=== PATIENT | male | born 1960 | race Two or more races ===

== ENCOUNTER → 2022-01-26 | Day surgery (SDC) | payer OTHER ==
[~2022-01-26] VITALS: Ht 170.2 cm; Wt 94.3 kg
[~2022-01-26] MED LIST: ACETAMINOPHEN 325MG TABLET PO PRN; ALLO100T MT; ASPI-986 MT; ASPIRIN/SOD BICARB/CITRIC ACID 324MG TAB EFF ONE; ATROPINE SULFATE 1MG/10ML SYR IV PRN; BEMP1TAB; FENTANYL CITRATE/PF 50MCG/ML 2ML VIAL ONE; HEPARIN SODIUM 1,000 UNIT/1ML VIAL IV ONE; IODIXANOL 320MG/ML 100 ML BOTTLE IV ONE; LIDOCAINE HCL/PF 2% 20MG/ML 5 ML/VIAL ONE; MIDAZOLAM HCL 2 MG/2 ML VIAL ONE; MORPHINE SULFATE 2 MG/ML CPJ (NOT FOR IM USE) IV PRN; ONDANSETRON HCL 4MG/2ML INJ IV PRN; TELM1TAB41 MT
== END | disposition home or self-care (01) ==
LOC: CCL 07:11
PROVIDERS: ATTEND Specialist
DX: I25.10 Atherosclerotic heart disease of native coronary artery without angina pectoris (principal); R94.39 Abnormal result of other cardiovascular function study; E78.2 Mixed hyperlipidemia; I11.9 Hypertensive heart disease without heart failure; E66.3 Overweight; I10 Essential (primary) hypertension; M10.9 Gout, unspecified; Z87.891 Personal history of nicotine dependence; Z79.899 Other long term (current) drug therapy; Z98.890 Other specified postprocedural states; Z79.82 Long term (current) use of aspirin; Z20.822 Contact with and (suspected) exposure to COVID-19
CPT/HCPCS: 87426; 93458; 99152; 99153; C1769; C1887; C1893; C9803; J1644; J2250; J3010; J3490; Q9967; G0500

== ENCOUNTER → 2022-02-03 | Outpatient (CLI) | payer OTHER ==
[~2022-02-03] MED LIST changes: -ACETAMINOPHEN 325MG TABLET PO PRN; +ASPI-1406 MT; -ASPIRIN/SOD BICARB/CITRIC ACID 324MG TAB EFF ONE; -ATROPINE SULFATE 1MG/10ML SYR IV PRN; -FENTANYL CITRATE/PF 50MCG/ML 2ML VIAL ONE; -HEPARIN SODIUM 1,000 UNIT/1ML VIAL IV ONE; -IODIXANOL 320MG/ML 100 ML BOTTLE IV ONE; -LIDOCAINE HCL/PF 2% 20MG/ML 5 ML/VIAL ONE; -MIDAZOLAM HCL 2 MG/2 ML VIAL ONE; -MORPHINE SULFATE 2 MG/ML CPJ (NOT FOR IM USE) IV PRN; -ONDANSETRON HCL 4MG/2ML INJ IV PRN
== END | disposition home or self-care (01) ==
LOC: LAB 09:52
PROVIDERS: ATTEND Specialist
DX: R06.02 Shortness of breath (principal); Z20.822 Contact with and (suspected) exposure to COVID-19
CPT/HCPCS: 87426; C9803

== ENCOUNTER 2022-02-04 08:18 | Inpatient (IN) | payer OTHER ==
[~2022-02-04] VITALS: Ht 170.2 cm; Wt 104.3 kg
[~2022-02-04 08:18] MED LIST changes: -ASPI-1406 MT
[2022-02-04] MEDS ORDERED: NITROGLYCERIN 50MCG/ML 10ML VIAL (CATH LAB) IV ONE (09:00)
[2022-02-04] MEDS ORDERED: NICARDIPINE 100MCG/ML 10ML VIAL (CATH LAB) IV ONE (09:00)
[2022-02-04] MEDS ORDERED: ASPI-1406 MT (09:11)
[2022-02-04] MEDS ORDERED: LIDOCAINE HCL/PF 1% 10 MG/ML 5ML VIAL ONE ×2 (09:27→10:33)
[2022-02-04] MEDS ORDERED: HEPARIN 1000 UNITS/ML 10ML ONE (09:28)
[2022-02-04] MEDS ORDERED: IODIXANOL 320MG/ML 100 ML BOTTLE IV ONE ×2 (09:28→11:18)
[2022-02-04] MEDS ORDERED: MIDAZOLAM HCL 2 MG/2 ML VIAL ONE ×2 (10:14→10:53)
[2022-02-04] MEDS ORDERED: FENTANYL CITRATE/PF 50MCG/ML 2ML VIAL ONE (10:14)
[2022-02-04] MEDS ORDERED: CLOPIDOGREL 75MG TABLET ONE (11:48)
[2022-02-04] MEDS ORDERED: ACETAMINOPHEN 325MG TABLET PO PRN (12:15)
[2022-02-04] MEDS ORDERED: CLOPIDOGREL 75MG TABLET PO ONE (12:15)
[2022-02-04] MEDS ORDERED: ONDANSETRON HCL 4MG/2ML INJ IV PRN (12:15)
[2022-02-04] MEDS ORDERED: SODIUM CHLORIDE 0.45% 1,000 ML IV ONE (12:15)
[2022-02-04] MEDS ORDERED: ATROPINE SULFATE 1MG/10ML SYR IV PRN (12:15)
[2022-02-04 13:25] VITALS: BP 152/95
[2022-02-04] MEDS ORDERED: NALOXONE HCL 0.4MG/ML VIAL IV PRN (13:30)
[2022-02-04 13:34] VITALS: BP 151/95
[2022-02-04 16:00] VITALS: BP 163/82
[2022-02-04 18:00] VITALS: BP 160/105
[2022-02-04] MEDS: AMLODIPINE 5MG TABLET PO SCH (18:37)
[2022-02-04 20:00] VITALS: BP 173/97
[2022-02-04] MEDS ORDERED: DOXAZOSIN MESYLATE 2MG TABLET PO SCH (21:00)
[2022-02-04] MEDS: MORPHINE SULFATE 2 MG/ML CPJ (NOT FOR IM USE) IV PRN (21:06)
[2022-02-04 22:00] VITALS: BP 164/90
[2022-02-04] MEDS ORDERED: HYDRALAZINE 20MG/ML VIAL IV NR (23:00)
[2022-02-04] MEDS ORDERED: HYDRALAZINE 20MG/ML VIAL IV PRN (23:00)
[2022-02-04] MEDS ORDERED: CLONIDINE 0.1MG TABLET PO PRN (23:00)
[2022-02-05] VITALS (11 sets, daily range): BP systolic 106–149; BP diastolic 60–90
[2022-02-05 06:08] LABS: CHLORIDE 105 mEq/L (98-107)
[2022-02-05 06:33] LABS: BASOPHILS % 0.3 % (0.0-2.0); EOSINOPHILS % 0.3 % (0.0-5.0); HEMATOCRIT. 38.7 % (42.0-52.0); HEMOGLOBIN. 13.4 g/dL (14.0-18.0); LYMPHOCYTES % 20.4 % (20.0-50.0); MEAN CORPUSCULAR HEMOGLOBIN 32.2 pg (28.0-32.0); MEAN CORPUSCULAR VOLUME 92.8 fL (80.0-94.0); MEAN PLATELET VOLUME 6.2 fl (7.4-10.4); MONOCYTES % 6.7 % (2.0-8.0); NEUTROPHILS % 72.3 % (40.0-76.0); PLATELET 270 x1000/uL (130-400); RED BLOOD CELL COUNT 4.17 mill/uL (4.7-6.1); RED CELL DISTRIBUTION WIDTH 13.1 % (11.6-14.6)
[2022-02-05] MEDS: MORPHINE SULFATE 2 MG/ML CPJ (NOT FOR IM USE) IV PRN (08:03)
[2022-02-05] MEDS ORDERED: ASPIRIN 325MG TABLET PO SCH (09:00)
[2022-02-05] MEDS ORDERED: CLOPIDOGREL 75MG TABLET PO SCH (09:00)
[2022-02-05] MEDS: AMLODIPINE 5MG TABLET PO SCH (09:23)
== END 2022-02-05 16:28 | disposition home or self-care (01) | DRG 247 ==
LOC: CCL 08:18 → 5EST 13:09
PROVIDERS: ADMIT Specialist; ATTEND Specialist
PROC: 0271366 Dilation of Coronary Artery, Two Arteries, Bifurcation, with Three Drug-eluting Intraluminal Devices, Percutaneous Approach (ICD-10-PCS; principal; 2022-02-04)
PROC: 4A023N7 Measurement of Cardiac Sampling and Pressure, Left Heart, Percutaneous Approach (ICD-10-PCS; 2022-02-04)
PROC: B2111ZZ Fluoroscopy of Multiple Coronary Arteries using Low Osmolar Contrast (ICD-10-PCS; 2022-02-04)
DX: I25.10 Atherosclerotic heart disease of native coronary artery without angina pectoris (principal); E66.9 Obesity, unspecified; E78.5 Hyperlipidemia, unspecified; I10 Essential (primary) hypertension; M10.9 Gout, unspecified; Z79.82 Long term (current) use of aspirin; Z79.899 Other long term (current) drug therapy; Z68.36 Body mass index [BMI] 36.0-36.9, adult
CPT/HCPCS: 36415; 76857; 80048; 85025; 92928; 93005; 93454; C1725; C1760; C1769; C1874; C1887; C1893; J0360; J1644; J2250; J2270; J2405; J3010; J3490; Q9967